=== PATIENT | male | born 1985 | race Hispanic/Latino ===

== ENCOUNTER → 2016-08-06 | Outpatient (CLI) | payer BC, SELFPAY ==
--- NOTE | 2016-08-07 17:42 | RAD ---
Procedure: XR CHEST 2 VIEWS Exam Date: 08/06/2016 Ordering Provider: Nedra Castañeda NP Clinical Indication: DYSPNEA Comparison: 11/08/2011 Findings: Cardiac silhouette: Normal Pulmonary vasculature : Normal Mediastinal contour: Normal Aortic contour: Normal Focal lung consolidation: None Pleural effusion: None Pneumothorax: None Acute bony or soft tissue abnormality: None Impression: 1. No acute abnormalities in the chest. Electronically signed by: Daniel Kevin MD 08/07/2016 5:42 PM CDT
== END ==
LOC: RAD 17:13
PROVIDERS: ATTEND Nurse Practitioner Family
DX: R06.00 Dyspnea, unspecified (principal)